=== PATIENT | female | born 1985 | race Caucasian/White ===

== ENCOUNTER → 2024-05-02 | Outpatient (CLI) | payer OTHER ==
--- NOTE | 2024-05-02 22:44 | US ---
EXAMINATION TYPE: US extremity nonvasc mass EREN DATE OF EXAM: 05/02/2024 COMPARISON: NONE CLINICAL INDICATION: Female, 38 years old with history of R19.09 OTHER INTRA-ABDOMINAL AND PELVIC SWE LLING,; palpable area on left hip region, patient noticed since she has been losing weight. On right hip/buttocks region she has recent injection and felt palpable afterwards TECHNIQUE: Soft tissue scan of bilat palpables FINDINGS: Left hip soft tissue appears normal Right hip/buttocks there is obvious hyperechoic region at site of injection 2 months ago measuring 3.8 x 3.5cm Abscess is not identified. Granuloma could be considered IMPRESSION: 1. There is a hyperechoic area within the subcutaneous fat at the palpable region measuring 3.8 x 1.6 x 3.5 cm. Evaluation for granuloma is recommended. [facility], , 05/02/2024 10:42 PM
== END | disposition home or self-care (01) ==
LOC: RADUSWWP 16:25
PROVIDERS: ATTEND Family Medicine
DX: R22.2 Localized swelling, mass and lump, trunk (principal)
CPT/HCPCS: 76882

== ENCOUNTER 2024-05-04 07:05 | Emergency (ER) | payer OTHER ==
[2024-05-04] MEDS: KETOROLAC 15 MG/ML 1 ML VIAL IM STA (07:33)
--- NOTE | 2024-05-04 07:37 | ED ---
Back Pain HPI - General Chief Complaint: Back Pain/Injury Stated Complaint: back pain Time Seen by Provider: 05/04/24 07:13 Source: patient, RN notes reviewed Limitations: no limitations - History of Present Illness Initial Comments: Patient is a 38 year old female with past medical history of asthma and chronic back pain presenting to ER with back pain. Patient states she "pulled her back out" last night in her sleep. She states that the pain is deep in her lumbar spine and is radiating into bilateral hips and legs with numbness and tingling. She describes her pain as "breathtaking". She states this has happened before and she has a long history of back pain. She states she is also feeling lightheaded and nauseous. She has taken 800mg Ibuprofen and 500mg Tylenol before coming in, which usually would help her pain. She states she would like Torodol as anything stronger makes her feel sick and she does not want to "feel high". - Related Data Previous Rx's Medication Instructions Recorded Cyclobenzaprine [Flexeril] 10 mg PO TID PRN #15 tab 05/04/24 LORazepam [Ativan] 1 mg PO TID PRN 3 Days #9 tab 05/04/24 predniSONE 50 mg PO DAILY #5 tab 05/04/24 Allergies Allergy/AdvReac Type Severity Reaction Status Date / Time escitalopram [From Lexapro] Allergy Nausea & Verified 05/04/24 07:07 Vomiting Penicillins Allergy Anaphylaxis Verified 05/04/24 07:07 Review of Systems ROS Statement: Those systems with pertinent positive or pertinent negative responses have been documented in the HPI. ROS Other: All systems not noted in ROS Statement are negative. Past Medical History Past Medical History: Asthma, Hyperlipidemia, Liver Disease, Skin Disorder Past Surgical History: Adenoidectomy, Hysterectomy, Tonsillectomy Past Psychological History: ADD/ADHD, Anxiety, Depression, PTSD Smoking Status: Current every day smoker Past Alcohol Use History: None Reported Past Drug Use History: Marijuana General Exam Limitations: no limitations General appearance: alert, anxious, in distress (tearful) Head exam: Present: atraumatic, normocephalic, normal inspection Eye exam: Present: normal appearance, PERRL, EOMI. Absent: scleral icterus, conjunctival injection, periorbital swelling Respiratory exam: Present: wheezes (bilaterl) Cardiovascular Exam: Present: normal rhythm, normal heart sounds. Absent: systolic murmur, diastolic murmur, rubs, gallop, clicks GI/Abdominal exam: Present: soft, normal bowel sounds. Absent: distended, tenderness, guarding, rebound, rigid Back exam: Present: tenderness, vertebral tenderness. Absent: full ROM (decreased flexion and extension), CVA tenderness (R), CVA tenderness (L) Neurological exam: Present: alert, oriented X3, CN II-XII intact Psychiatric exam: Present: normal affect, anxious Skin exam: Present: warm, dry, intact, normal color. Absent: rash Course Vital Signs 05/04/24 05/04/24 05/04/24 07:08 07:31 08:15 Temperature 98.1 F Pulse Rate 74 84 79 Respiratory 20 18 Rate Blood Pressure 123/71 111/17 O2 Sat by Pulse 99 98 Oximetry 05/04/24 05/04/24 05/04/24 08:27 09:22 11:14 Temperature 97.9 F Pulse Rate 67 83 63 Respiratory 18 16 Rate Blood Pressure 110/86 102/62 O2 Sat by Pulse 99 98 Oximetry 05/04/24 11:17 Temperature 97.9 F Pulse Rate 63 Respiratory 18 Rate Blood Pressure 102/62 O2 Sat by Pulse 98 Oximetry Medical Decision Making - Medical Decision Making Was pt. sent in by a medical professional or institution (ALLISON Smiley, MEDICAL BILLING CLERK, urgent care, hospital, or custodial...) When possible be specific @ -No Did you speak to anyone other than the patient for history (EMS, parent, family, police, friend...)? What history was obtained from this source @ -No Did you review nursing and triage notes (agree or disagree)? Why? @ -I reviewed and agree with nursing and triage notes Were old charts reviewed (outside hosp., previous admission, EMS record, old EKG, old radiological studies, urgent care reports/EKG's, custodial records)? Report findings @ -No old charts were reviewed Differential Diagnosis (chest pain, altered mental status, abdominal pain women, abdominal pain men, vaginal bleeding, weakness, fever, dyspnea, syncope, headache, dizziness, GI bleed, back pain, seizure, CVA, palpatations, mental health, musculoskeletal)? @ -Differential Back Pain: Strain, zoster, cauda equina syndrome, epidural abscess, vertebral osteomyelitis, discitis, fracture, subluxation, disc herniation, DJD, spinal stenosis, dissection, AAA, pancreatitis, peptic ulcer disease, pyelonephritis, kidney stone, this is not meant to be an all-inclusive list. EKG interpreted by me (3pts min.). @ -None X-rays interpreted by me (1pt min.). @ -X-ray lumbar spine showing mild straightening no other acute process CT interpreted by me (1pt min.). @ -None done U/S interpreted by me (1pt. min.). @ -None done What testing was considered but not performed or refused? (CT, X-rays, U/S, labs)? Why? @ -None What meds were considered but not given or refused? Why? @ -None Did you discuss the management of the patient with other professionals (professionals i.e. , PA, MEDICAL BILLING CLERK, lab, RT, psych nurse, administrator social welfare, transverse abdominal muscle nurse, teacher, sba business development officer, case folder)? Give summary @ -No Was smoking cessation discussed for >3mins.? @ -No Was critical care preformed (if so, how long)? @ -No Were there social determinants of health that impacted care today? How? (Homelessness, low income, unemployed, alcoholism, drug addiction, transportation, low edu. Level, literacy, decrease access to med. care, shelter, rehab)? @ -No Was there de-escalation of care discussed even if they declined (Discuss DNR or withdrawal of care, Hospice)? DNR status @ -No What co-morbidities impacted this encounter? (DM, HTN, Smoking, COPD, CAD, Cancer, CVA, ARF, Chemo, Hep., AIDS, mental health diagnosis, sleep apnea, morbid obesity)? @ -Asthma, anxiety, chronic back pain Was patient admitted / discharged? Hospital course, mention meds given and route, prescriptions, significant lab abnormalities, going to OR and other pertinent info. @ -Discharge patient presented for low back pain. Patient x-rays do not show any significant acute process. Patient has no red flag symptoms. Patient has improved she did have panic take emergency department quiring Ativan. Pain is improved she is able to ambulates she was given close follow-up return parameters discussed. Undiagnosed new problem with uncertain prognosis? @ -No Drug Therapy requiring intensive monitoring for toxicity (Heparin, Nitro, Insulin, Cardizem)? @ -No Were any procedures done? @ -No Diagnosis/symptom? @ -Acute on chronic back pain, anxiety, asthma Acute, or Chronic, or Acute on Chronic? @ -Acute on chronic, acute acute Uncomplicated (without systemic symptoms) or Complicated (systemic symptoms)? @ -Complicated Side effects of treatment? @ -No Exacerbation, Progression, or Severe Exacerbation? @ -No Poses a threat to life or bodily function? How? (Chest pain, USA, [place], pneumonia, PE, COPD, DKA, ARF, appy, cholecystitis, CVA, Diverticulitis, Homicidal, Suicidal, threat to staff... and all critical care pts) @ -No Disposition Clinical Impression: Lumbar radicular pain, Spasm of lumbar paraspinous muscle Disposition: HOME SELF-CARE Condition: Stable Instructions (If sedation given, give patient instructions): Acute Low Back Pain (ED) Additional Instructions: Please return to the Emergency Department if symptoms worsen or any other concerns. Prescriptions: LORazepam [Ativan] 1 mg PO TID PRN 3 Days #9 tab PRN Reason: Anxiety Cyclobenzaprine [Flexeril] 10 mg PO TID PRN #15 tab PRN Reason: Muscle Spasm predniSONE 50 mg PO DAILY #5 tab Is patient prescribed a controlled substance at d/c from ED?: Yes When asked, does pt state using other controlled substances?: No If prescribed controlled substance>3 days was MAPS reviewed?: Prescribed <3 Days If opioid is for acute pain is fill amount 7 days or less?: Yes If Rx opioid, was Start Talking consent form obtained?: Yes Referrals: Perlita Farmer MD [Primary Care Provider] - 1-2 days Veronica Duong DO [Doctor of Osteopathic Medicine] - 1-2 days Sepideh Joaquin MD [Medical Doctor] - 1-2 days Time of Disposition: 10:57
[2024-05-04] MEDS: ONDANSETRON ODT 4 MG TAB PO STA (07:39)
[2024-05-04] MEDS: IPRATROPIUM-ALBUTEROL 3 ML NEB INHALATION STA (08:15)
--- NOTE | 2024-05-04 08:24 | XR ---
EXAMINATION TYPE: XR lumbar spine 2 or 3V DATE OF EXAM: 05/04/2024 7:57 AM COMPARISON: None. CLINICAL INDICATION: Female, 38 years old with history of pain, pain TECHNIQUE: 3 view(s) obtained. FINDINGS: There are 5 lumbar-type vertebral bodies. Pedicles are intact. Disc heights are preserved. Vertebral body heights are preserved. Alignment is normal. IMPRESSION: 1. Unremarkable lumbar spine [facility], Workstation: [facility], 05/04/2024 8:22 AM
[2024-05-04] MEDS: LORazepam 2 MG/ML INJ IV STA ×2 (09:14→09:42)
[2024-05-04] MEDS: KETOROLAC 15 MG/ML 1 ML VIAL IVP STA (09:19)
[2024-05-04] MEDS: LORazepam 2 MG/ML INJ IM STA (09:40)
[2024-05-04] MEDS: methylPREDNISolone SOD SUCCI 125 MG/2 ML VIAL IV STA (10:08)
[2024-05-04] MEDS: ORPHENADRINE 30 MG/ML 2 ML VIAL IVP STA (10:11)
[2024-05-04] MEDS: HYDROmorphone 0.5 MG/0.5 ML SYRINGE IVP STA (10:13)
[2024-05-04 11:15] VITALS: BP 102/62; PULSE 63; TEMP 97.9
[2024-05-04 11:18] VITALS: RESP 18
[2024-05-04] MEDS: ACET/COD 300 MG/30 MG STARTER PACK 6 TAB BTL PO STA (11:28)
[2024-05-04] MEDS: CYCLOBENZAPRINE 10MG STARTER 3 TAB BTL PO STA (11:29)
== END 2024-05-04 11:34 | disposition home or self-care (01) ==
LOC: EC 07:05
DX: M54.16 Radiculopathy, lumbar region (principal); J45.909 Unspecified asthma, uncomplicated; F41.9 Anxiety disorder, unspecified; G89.29 Other chronic pain; F17.200 Nicotine dependence, unspecified, uncomplicated; Z88.0 Allergy status to penicillin; Z88.8 Allergy status to other drugs, medicaments and biological substances
CPT/HCPCS: 99284 ×2; 96374 ×2; 96375 ×5; 96376; 96372 ×2; 94640; 72100; J2060; J2360; J1885; J1171; J2919

== ENCOUNTER → 2024-05-19 | Outpatient (CLI) | payer OTHER ==
[2024-05-19 15:12] LABS: ALT 8 U/L (8-44); AST 11 U/L (13-35); Albumin 4.7 g/dL (3.8-4.9); Albumin/Globulin Ratio 1.57 Ratio (1.60-3.17); Alkaline Phosphatase 87 U/L (41-126); BUN/Creat Ratio 12.11 Ratio (12.00-20.00); Blood Urea Nitrogen 10.9 mg/dL (9.0-27.0); Calcium 9.7 mg/dL (8.7-10.3); Carbon Dioxide 23.9 mmol/L (21.6-31.8); Chloride 105 mmol/L (96-109); Glucose 113 mg/dL (70-110); Potassium 4.8 mmol/L (3.5-5.5); Sodium 141 mmol/L (135-145); Total Bilirubin 0.6 mg/dL (0.3-1.2); Total Protein 7.7 g/dL (6.2-8.2)
[2024-05-19 15:50] LABS: Basophils # (A) 0.04 X 10*3/uL (0.00-0.10); Basophils % (A) 0.6 %; Eosinophils # (A) 0.12 X 10*3/uL (0.04-0.35); Eosinophils % (A) 1.7 %; HCT 45.3 % (37.2-46.3); HGB 14.8 g/dL (12.0-15.0); Lymphocytes % (A) 34.4 %; MCH 30.5 pg (27.0-32.0); MCHC 32.7 g/dL (32.0-37.0); MCV 93.2 FL (80.0-97.0); Mean Platelet Volume 10.3 FL (9.5-12.2); Monocytes # (A) 0.39 X 10*3/uL (0.20-1.00); Monocytes % (A) 5.4 %; NRBC Per 100 WBC 0 X 10*3/uL (0.00-0.01); Neutrophils # (A) 4.19 X 10*3/uL (1.80-7.70); Neutrophils % (A) 57.6 %; Platelet Count 296 X 10*3/uL (140-440); RBC 4.86 X 10*6/uL (4.10-5.20); RDW 12.5 % (11.5-14.5); WBC 7.26 X 10*3/uL (4.50-10.00)
[2024-05-19 16:06] LABS: Erythrocyte Sedimentation Rate 41 mm/Hr (0-20)
[2024-05-19 16:59] LABS: Gliadin AB IgA, Deaminated Negative (Negative); Gliadin AB IgA, Unit 2.4 U/mL; Gliadin AB IgG, Deaminated Negative (Negative); Gliadin AB IgG, Unit <0.4 U/mL
== END | disposition home or self-care (01) ==
LOC: LABWHC1 09:12
PROVIDERS: ATTEND Nurse Practitioner Family
DX: K21.9 Gastro-esophageal reflux disease without esophagitis (principal); R10.9 Unspecified abdominal pain
CPT/HCPCS: 36415; 80053; 83516; 85025; 85652; 86140

== ENCOUNTER 2024-05-20 06:58 | Day surgery (SDC) | payer OTHER ==
[2024-05-18 10:39] VITALS: BMI 35.4
[2024-05-20 07:25] VITALS: TEMP 98.1
[2024-05-20] MEDS: IV FLUID CONTINUATION 1,000 ML IV ONE (07:25)
[2024-05-20] MEDS: LACTATED RINGERS 1,000 ML IV SCH (07:28)
[2024-05-20] MEDS: ONDANSETRON 4 MG/2 ML VIAL IVP STA (07:38)
[2024-05-20] MEDS ORDERED: PROPOFOL 10 MG/ML 20 ML VIAL IV ONE (07:40)
--- NOTE | 2024-05-20 07:59 | P.PCN ---
Date of Procedure: 05/20/24 Procedure(s) Performed: Brief history: Patient is a pleasant 38-year-old white female scheduled for an elective upper endoscopy as well as colonoscopy as a part of evaluation of chronic intermittent nausea vomiting and some abdominal pain and change in bowel habits for the last 20 years duration. Her symptoms are likely progressively getting worse. She has the symptoms at least once or twice a week. Also complains of alternating diarrhea and constipation. No rectal bleeding. Procedure performed: Esophagogastroduodenoscopy with biopsy Colonoscopy with biopsy Preoperative diagnosis: Intermittent nausea vomiting Anesthesia: MAC Procedure: After informed consent was obtained from the patient was brought into the endoscopy unit and IV sedation was administered by anesthesia under continuous monitoring. Initially upper endoscopy was done. The Olympus GF 160 video endoscope was inserted inserted into the mouth and esophagus intubated without any difficulty and was gradually advanced into the stomach and duodenum and carefully examined. The bulb and second part of the duodenum appeared normal. These were done from the duodenum to rule out celiac disease. The scope was then withdrawn into the stomach adequately insufflated with air and upon careful examination the antrum had patchy areas of erythema consistent with gastritis. Biopsies were done from this area. Mucosa body, cardia and fundus appeared normal. The scope was then withdrawn into the esophagus. The GE junction was located at 40 cm to the incisors. It appeared regular with appropriate erosion consistent with LA grade B reflux esophagitis. Rest of the esophagus appeared normal. These were done from the distal esophagus. Patient tolerated the procedure well. At this time the patient continued to remain sedation. Initial digital rectal examination was normal. Olympus CF 160 video colonoscope was then inserted into the rectum and gradually advanced to the cecum without any difficulty. Careful examination was performed as the scope was gradually being withdrawn. The prep was excellent. Ileum was intubated and 20 cm visualized and there is scattered erosions noted in the terminal ileum and biopsies were done from this area. The cecum, ascending colon, transverse colon, descending colon, sigmoid colon and rectum appeared normal. Biopsies were done from ascending and descending colon to rule out microscopic/presents colitis. Retroflexion was performed in the rectum and no lesions were noted. Patient tolerated the procedure well. Impression: 1. Upper endoscopy revealed mild antral gastritis and LA grade B reflux esophagitis 2. Colonoscopy was within normal limits with no evidence of colorectal neoplasia. Scattered erosions in the terminal ileum consistent with ileitis s/p biopsy Recommendations: Findings of this examination were discussed with the patient as well as her family. She was advised to follow with the biopsy results. She will be seen in the office in 2 to 3 weeks.
[2024-05-20 08:39] VITALS: BP 126/78; PULSE 78; RESP 18
== END 2024-05-20 08:56 | disposition home or self-care (01) ==
LOC: ORWHC2ENDO 06:58
PROVIDERS: ATTEND Internal Medicine Gastroenterology
DX: K29.50 Unspecified chronic gastritis without bleeding (principal); K52.9 Noninfective gastroenteritis and colitis, unspecified; K21.00 Gastro-esophageal reflux disease with esophagitis, without bleeding; E78.5 Hyperlipidemia, unspecified; J45.909 Unspecified asthma, uncomplicated; Z85.41 Personal history of malignant neoplasm of cervix uteri; Z79.51 Long term (current) use of inhaled steroids; Z79.899 Other long term (current) drug therapy; Z90.710 Acquired absence of both cervix and uterus; Z91.040 Latex allergy status; Z88.0 Allergy status to penicillin; Z88.8 Allergy status to other drugs, medicaments and biological substances; Z98.890 Other specified postprocedural states
CPT/HCPCS: 88305; 45380; 43239; J2405; J2704

== ENCOUNTER 2024-05-23 15:14 | Emergency (ER) | payer OTHER ==
--- NOTE | 2024-05-23 15:24 | ED ---
General Adult HPI - General Source: patient, RN notes reviewed Mode of arrival: ambulatory Limitations: no limitations <Lottie Ford - Last Filed: 05/23/24 15:24> - General Source: patient, RN notes reviewed, old records reviewed Mode of arrival: ambulatory Limitations: no limitations - History of Present Illness -: hour(s) (12) Location: buttocks Radiation: non-radiation Consistency: intermittent Improves with: none Worsens with: none Associated Symptoms: weakness Treatments Prior to Arrival: none <Pete López - Last Filed: 05/25/24 07:51> - General Chief complaint: GI Bleed Stated complaint: bleeding from rectum Time Seen by Provider: 05/23/24 15:24 - History of Present Illness Initial comments: Quick note: 38-year-old female presents to the emergency department for evaluation of rectal bleeding. Patient reports that she underwent a colonoscopy 3 days ago and started experiencing blood in stool. Denies blood thinners. Denies nausea, vomiting. States that she had a colonoscopy done by Dr. Briseno. (Lottie Ford) This is a 38 female to the ER for rectal bleeding. Colonoscopy 3 days ago she did have polyps removed, patient has had bleeding starting last night and feels like she has to go to the bathroom. Patient is passing some clots (Pete López) - Related Data Home Medications Medication Instructions Recorded Confirmed Acetaminophen Tab [Tylenol Tab] 500 mg PO Q8HR PRN 05/18/24 05/20/24 Acetaminophen-Codeine 300-30mg 1 tab PO Q6H PRN 05/18/24 05/20/24 [Tylenol w/codeine #3] Albuterol Inhaler [Ventolin Hfa 1 - 2 puff INHALATION Q6H PRN 05/18/24 05/20/24 Inhaler] Cyanocobalamin (Vitamin B-12) 1,000 mcg PO DAILY 05/18/24 05/18/24 [B-12 Oral Soln] Fluticasone/Umeclidin/Vilanter 2 dose INHALATION BID 05/18/24 05/20/24 [Trelegy Ellipta 100-62.5-25] Ibuprofen 800 mg PO Q8H PRN 05/18/24 05/18/24 Ondansetron [Zofran] 4 mg PO Q8HR PRN 05/18/24 05/20/24 Pantoprazole [Protonix] 40 mg PO DAILY 05/18/24 05/20/24 Semaglutide [Wegovy] 1 mg SQ WEEKLY 05/18/24 05/18/24 Previous Rx's Medication Instructions Recorded Cyclobenzaprine [Flexeril] 10 mg PO TID PRN #15 tab 05/04/24 LORazepam [Ativan] 1 mg PO TID PRN 3 Days #9 tab 05/04/24 Allergies Allergy/AdvReac Type Severity Reaction Status Date / Time latex Allergy Rash/Hives Verified 05/23/24 15:20 Penicillins Allergy Anaphylaxis Verified 05/23/24 15:20 bupropion [From Wellbutrin] AdvReac Unknown Verified 05/23/24 15:20 mold AdvReac Unknown Verified 05/23/24 15:20 Review of Systems ROS Other: All systems not noted in ROS Statement are negative. <Lottie Ford - Last Filed: 05/23/24 15:24> ROS Other: All systems not noted in ROS Statement are negative. <Pete López - Last Filed: 05/25/24 07:51> ROS Statement: Those systems with pertinent positive or pertinent negative responses have been documented in the HPI. Past Medical History Past Medical History: Asthma, Hyperlipidemia, Liver Disease, Skin Disorder History of Any Multi-Drug Resistant Organisms: None Reported Past Surgical History: Adenoidectomy, Hysterectomy, Tonsillectomy Past Psychological History: ADD/ADHD, Anxiety, Depression, PTSD Smoking Status: Current every day smoker Past Alcohol Use History: None Reported Past Drug Use History: Marijuana <Lottie Ford - Last Filed: 05/23/24 15:24> General Exam Limitations: no limitations <Lottie Ford - Last Filed: 05/23/24 15:24> General appearance: alert, in no apparent distress Head exam: Present: atraumatic, normocephalic, normal inspection Eye exam: Present: normal appearance, PERRL, EOMI. Absent: scleral icterus, conjunctival injection, periorbital swelling ENT exam: Present: normal exam, mucous membranes moist Neck exam: Present: normal inspection. Absent: tenderness, meningismus, lymphadenopathy Respiratory exam: Present: normal lung sounds bilaterally. Absent: respiratory distress, wheezes, rales, rhonchi, stridor Cardiovascular Exam: Present: regular rate, normal rhythm, normal heart sounds. Absent: systolic murmur, diastolic murmur, rubs, gallop, clicks GI/Abdominal exam: Present: soft, normal bowel sounds. Absent: distended, tenderness, guarding, rebound, rigid Extremities exam: Present: normal inspection, full ROM, normal capillary refill. Absent: tenderness, pedal edema, joint swelling, calf tenderness Back exam: Present: normal inspection Neurological exam: Present: alert, oriented X3, CN II-XII intact Psychiatric exam: Present: normal affect, normal mood Skin exam: Present: warm, dry, intact, normal color. Absent: rash <Pete López - Last Filed: 05/25/24 07:51> - General Exam Comments Initial Comments: Visual Physical Exam Vital signs reviewed General: Well-appearing, nontoxic, no acute distress. Head: Normocephalic, atraumatic Eyes: PERRLA, EOMI ENT: Airway patent Chest: Nonlabored breathing Skin: No visual rash, normal skin tone Neuro: Alert and oriented 3 Musculoskeletal: No gross abnormalities (Lottie Ford) Course <Pete López - Last Filed: 05/25/24 07:51> Vital Signs 05/23/24 05/23/24 15:17 18:30 Temperature 98.4 F 98 F Pulse Rate 100 60 Respiratory 20 18 Rate Blood Pressure 111/75 111/71 O2 Sat by Pulse 96 97 Oximetry - Reevaluation(s) Reevaluation #1: 05/23/24 17:55 Medical records reviewed (Pete López) Reevaluation #2: 05/23/24 17:55 Patient symptoms unchanged (Pete López) Reevaluation #3: 05/23/24 17:55 Patient informed of results questions answered (Pete López) Reevaluation #4: Was pt. sent in by a medical professional or institution (, PA, BUILD AND DEPLOYMENT ENGINEER, urgent care, hospital, or custodial...) When possible be specific @ -no Did you speak to anyone other than the patient for history (EMS, parent, family, police, friend...)? What history was obtained from this source @ -no Did you review nursing and triage notes (agree or disagree)? Why? @ -agree Are old charts reviewed (outside hosp., previous admission, EMS record, old EKG, old radiological studies, urgent care reports/EKG's, custodial records)? Report findings @ -yes Differential Diagnosis (chest pain, altered mental status, abdominal pain women, abdominal pain men, vaginal bleeding, weakness, fever, dyspnea, syncope, head ache, dizziness, GI bleed, back pain, seizure, CVA, palpatations, mental health, musculoskeletal)? @ -prior EKG interpreted by me (3pts min.). @ no X-rays interpreted by me (1pt min.). @ -yes negative for acute disease CT interpreted by me (1pt min.). @ -no U/S interpreted by me (1pt. min.). @ -no What testing was considered but not performed or refused? (CT, X-rays, U/S, labs)? Why? @ -none What meds were considered but not given or refused? Why? @ -none Did you discuss the management of the patient with other professionals (professionals i.e. , PA, BUILD AND DEPLOYMENT ENGINEER, lab, RT, psych nurse, social media assistant, blacktop spreader, teacher, targeting acquisition officer, human services case manager)? Give summary @ -no Was smoking cessation discussed for >3mins.? @ -no Was critical care preformed (if so, how long)? @ -no Were there social determinants of health that impacted care today? How? (Homelessness, low income, unemployed, alcoholism, drug addiction, transportation, low edu. Level, literacy, decrease access to med. care, residential, rehab)? @ -none Was there de-escalation of care discussed even if they declined (Discuss DNR or withdrawal of care, Hospice)? DNR status @ -no What co-morbidities impacted this encounter? (DM, HTN, Smoking, COPD, CAD, Cancer, CVA, ARF, Chemo, Hep., AIDS, mental health diagnosis, sleep apnea, morbi d obesity)? @ -none Was patient admitted / discharged? Hospital course, mention meds given and rout e, prescriptions, significant lab abnormalities, going to OR and other pertinent info. @ - 38 female to ER positive GI bleed history of recent colonoscopy, hemoglobin stable. Patient's vital signs are normal not orthostatic or dizzy no signs of near syncope. Patient can be discharged home Discharge Undiagnosed new problem with uncertain prognosis? @ -no Drug Therapy requiring intensive monitoring for toxicity (Heparin, Nitro, Insulin, Cardizem)? @ -no Were any procedures done? @ -no Diagnosis/symptom? @ -GI bleed recent colonoscopy postprocedural Acute, or Chronic, or Acute on Chronic? @ -Acute Uncomplicated (without systemic symptoms) or Complicated (systemic symptoms)? @ -Complicated Side effects of treatment? @ -no Exacerbation, Progression, or Severe Exacerbation? @ -exacerbation Poses a threat to life or bodily function? How? (Chest pain, USA, [place], pneumonia, PE, COPD, DKA, ARF, appy, cholecystitis, CVA, Diverticulitis, Homicidal, Suicidal, threat to staff... and all critical care pts) @ -yes acute GI bleed (Pete López) Reevaluation #5: Differential GI Bleed: Esophageal varices, aortoenteric fistula, Noemi-Owens, gastritis, peptic ulcer disease, diverticulosis, inflammatory bowel disease, hemorrhoids, fissure, c olitis, malignancy, Meckel's diverticulum, this is not meant to be an all- inclusive list. (Pete López) - Consultations Consultation #1: Spoke with Dr. Gamez for GI will follow-up in the office (Pete López) Medical Decision Making <Lottie Ford - Last Filed: 05/23/24 15:24> - Lab Data Result diagrams: 05/23/24 15:48 05/23/24 15:48 <Pete López - Last Filed: 05/25/24 07:51> - Medical Decision Making Quick note preformed and electronically signed by Lottie Fodr PA-C (Lottie Ford) 38 female to ER positive GI bleed history of recent colonoscopy, hemoglobin stable. Patient's vital signs are normal not orthostatic or dizzy no signs of near syncope. Patient can be discharged home (Pete López) - Lab Data Lab Results 05/23/24 05/23/24 05/23/24 Range/Units 15:48 15:48 15:48 WBC 7.2 (3.8-10.6) k/uL RBC 4.49 (3.80-5.40) m/uL Hgb 13.8 (11.4-16.0) gm/dL Hct 41.3 (34.0-46.0) % MCV 91.9 (80.0-100.0) fL MCH 30.7 (25.0-35.0) pg MCHC 33.5 (31.0-37.0) g/dL RDW 12.4 (11.5-15.5) % Plt Count 259 (150-450) k/uL MPV 6.6 Neutrophils % 60 % Lymphocytes % 33 % Monocytes % 4 % Eosinophils % 2 % Basophils % 1 % Neutrophils # 4.3 (1.3-7.7) k/uL Lymphocytes # 2.3 (1.0-4.8) k/uL Monocytes # 0.3 (0-1.0) k/uL Eosinophils # 0.2 (0-0.7) k/uL Basophils # 0.0 (0-0.2) k/uL PT 11.1 (10.0-12.5) sec INR 1.0 (<1.2) APTT 30.3 H (22.0-30.0) sec Sodium 138 (137-145) mmol/L Potassium 4.2 (3.5-5.1) mmol/L Chloride 103 (98-107) mmol/L Carbon Dioxide 23 (22-30) mmol/L Anion Gap 12 mmol/L BUN 15 (7-17) mg/dL Creatinine 0.98 (0.52-1.04) mg/dL Est GFR (CKD-EPI)AfAm 85 (>60 ml/min/1.73 sqM) Est GFR (CKD-EPI)NonAf 73 (>60 ml/min/1.73 sqM) Glucose 101 H (74-99) mg/dL Calcium 9.9 (8.4-10.2) mg/dL Total Bilirubin 0.5 (0.2-1.3) mg/dL AST 15 (14-36) U/L ALT 11 (4-34) U/L Alkaline Phosphatase 77 (38-126) U/L Total Protein 7.7 (6.3-8.2) g/dL Albumin 4.5 (3.5-5.0) g/dL Disposition <Lottie Ford - Last Filed: 05/23/24 15:24> Is patient prescribed a controlled substance at d/c from ED?: No Time of Disposition: 18:00 <Pete López - Last Filed: 05/25/24 07:51> Clinical Impression: Colonoscopy causing post-procedural bleeding, Lower gastrointestinal hemorrhage Disposition: HOME SELF-CARE Condition: Fair Instructions (If sedation given, give patient instructions): Gastrointestinal Bleeding (ED) Referrals: Zaira Briseno MD [STAFF PHYSICIAN] - 1-2 days
[2024-05-23 16:01] LABS: Basophils % (A) 1 %; Eosinophils # (A) 0.2 k/uL (0-0.7); Eosinophils % (A) 2 %; HCT 41.3 % (34.0-46.0); HGB 13.8 gm/dL (11.4-16.0); Lymphocytes # (A) 2.3 k/uL (1.0-4.8); Lymphocytes % (A) 33 %; MCH 30.7 pg (25.0-35.0); MCHC 33.5 g/dL (31.0-37.0); MCV 91.9 fL (80.0-100.0); Mean Platelet Volume 6.6; Monocytes # (A) 0.3 k/uL (0-1.0); Monocytes % (A) 4 %; Neutrophils # (A) 4.3 k/uL (1.3-7.7); Neutrophils % (A) 60 %; Platelet Count 259 k/uL (150-450); RBC 4.49 m/uL (3.80-5.40); RDW 12.4 % (11.5-15.5); WBC 7.2 k/uL (3.8-10.6)
[2024-05-23 16:09] LABS: Partial Thromboplastin Time 30.3 sec (22.0-30.0); Prothrombin Time 11.1 sec (10.0-12.5)
[2024-05-23 16:17] LABS: ALT 11 U/L (4-34); AST 15 U/L (14-36); African American GFR (CKD) 85 (>60 ml/min/1.73 sqM); Albumin 4.5 g/dL (3.5-5.0); Alkaline Phosphatase 77 U/L (38-126); Anion Gap 12 mmol/L; Blood Urea Nitrogen 15 mg/dL (7-17); Calcium 9.9 mg/dL (8.4-10.2); Carbon Dioxide 23 mmol/L (22-30); Chloride 103 mmol/L (98-107); Glucose 101 mg/dL (74-99); Non-African American GFR(CKD) 73 (>60 ml/min/1.73 sqM); Potassium 4.2 mmol/L (3.5-5.1); Sodium 138 mmol/L (137-145); Total Bilirubin 0.5 mg/dL (0.2-1.3); Total Protein 7.7 g/dL (6.3-8.2)
[2024-05-23 18:31] VITALS: BP 111/71; PULSE 60; RESP 18; TEMP 98
== END 2024-05-23 18:31 | disposition home or self-care (01) ==
LOC: EC 15:14
DX: K92.2 Gastrointestinal hemorrhage, unspecified (principal); K91.840 Postprocedural hemorrhage of a digestive system organ or structure following a digestive system procedure; F17.200 Nicotine dependence, unspecified, uncomplicated; Z88.0 Allergy status to penicillin; Z91.040 Latex allergy status; Z77.120 Contact with and (suspected) exposure to mold (toxic); Z88.8 Allergy status to other drugs, medicaments and biological substances
CPT/HCPCS: 36415; 80053; 85025; 85610; 85730; 99284

== ENCOUNTER → 2024-06-07 | Outpatient (CLI) | payer OTHER | LOC: CPPFTMAIN 08:20 | PROVIDERS: ATTEND Family Medicine | DX: R06.9 Unspecified abnormalities of breathing (principal); F12.90 Cannabis use, unspecified, uncomplicated; Z91.040 Latex allergy status; Z88.0 Allergy status to penicillin; Z88.6 Allergy status to analgesic agent; Z77.120 Contact with and (suspected) exposure to mold (toxic) | CPT/HCPCS: 94060; 94726; 94729 ==

== ENCOUNTER 2024-08-24 06:00 | Emergency (ER) | payer OTHER ==
[2024-08-24 06:07] VITALS: TEMP 98.3
[2024-08-24 06:13] VITALS: RESP 18
--- NOTE | 2024-08-24 06:43 | ED ---
General Adult HPI - General Source: patient Mode of arrival: ambulatory Limitations: no limitations <Jesus Mir - Last Filed: 08/24/24 06:43> - General Source: RN notes reviewed <Easton Ann - Last Filed: 08/24/24 08:36> - General Chief complaint: Abdominal Pain Stated complaint: Abd Pain Time Seen by Provider: 08/24/24 06:19 - History of Present Illness Initial comments: Dictation was produced using [employer] dictation software. please excuse any grammatical, word or spelling errors. Chief Complaint: 38-year-old female with abdominal pain History of Present Illness: Patient 38-year-old female presents to the emergency department with abdominal pain. Patient reports history of Crohn's disease. States that over the last several days she has been having worsening abdominal pain, narrow stool caliber. She has been trying to take laxatives due to feeling of not being able to evacuate her bowels fully. Denies any fever, chills or night sweats. States that she has had complications from Crohn's disease in the past. Patient localizes her pain to the lower abdomen. The ROS documented in this emergency department record has been reviewed and confirmed by me. Those systems with pertinent positive or negative responses have been documented in the HPI. All other systems are other negative and/or noncontributory. (Jesus Mir) - Related Data Home Medications Medication Instructions Recorded Confirmed Acetaminophen Tab [Tylenol Tab] 500 mg PO Q8HR PRN 05/18/24 05/20/24 Acetaminophen-Codeine 300-30mg 1 tab PO Q6H PRN 05/18/24 05/20/24 [Tylenol w/codeine #3] Albuterol Inhaler [Ventolin Hfa 1 - 2 puff INHALATION Q6H PRN 05/18/24 05/20/24 Inhaler] Cyanocobalamin (Vitamin B-12) 1,000 mcg PO DAILY 05/18/24 05/18/24 [B-12 Oral Soln] Fluticasone/Umeclidin/Vilanter 2 dose INHALATION BID 05/18/24 05/20/24 [Trelegy Ellipta 100-62.5-25] Ibuprofen 800 mg PO Q8H PRN 05/18/24 05/18/24 Ondansetron [Zofran] 4 mg PO Q8HR PRN 05/18/24 05/20/24 Pantoprazole [Protonix] 40 mg PO DAILY 05/18/24 05/20/24 Semaglutide [Wegovy] 1 mg SQ WEEKLY 05/18/24 05/18/24 Previous Rx's Medication Instructions Recorded Cyclobenzaprine [Flexeril] 10 mg PO TID PRN #15 tab 05/04/24 LORazepam [Ativan] 1 mg PO TID PRN 3 Days #9 tab 05/04/24 Allergies Allergy/AdvReac Type Severity Reaction Status Date / Time latex Allergy Rash/Hives Verified 08/24/24 06:07 Penicillins Allergy Anaphylaxis Verified 08/24/24 06:07 bupropion [From Wellbutrin] AdvReac Unknown Verified 08/24/24 06:07 mold AdvReac Unknown Verified 08/24/24 06:07 Review of Systems ROS Other: All systems not noted in ROS Statement are negative. <Jesus Mir - Last Filed: 08/24/24 06:43> ROS Other: All systems not noted in ROS Statement are negative. <Easton Ann - Last Filed: 08/24/24 08:36> ROS Statement: Those systems with pertinent positive or pertinent negative responses have been documented in the HPI. Past Medical History Past Medical History: Asthma, Hyperlipidemia, Liver Disease, Skin Disorder Additional Past Medical History / Comment(s): Chrons History of Any Multi-Drug Resistant Organisms: None Reported Past Surgical History: Adenoidectomy, Hysterectomy, Tonsillectomy Past Psychological History: ADD/ADHD, Anxiety, Depression, PTSD Smoking Status: Former smoker Past Alcohol Use History: None Reported Past Drug Use History: Marijuana <Jesus Mir - Last Filed: 08/24/24 06:43> General Exam Limitations: no limitations <Jesus Mir - Last Filed: 08/24/24 06:43> General appearance: alert, in no apparent distress Head exam: Present: atraumatic, normocephalic, normal inspection Eye exam: Present: normal appearance, PERRL, EOMI. Absent: scleral icterus, conjunctival injection, periorbital swelling ENT exam: Present: normal exam, mucous membranes moist Neck exam: Present: normal inspection. Absent: tenderness, meningismus, lymphadenopathy Respiratory exam: Present: normal lung sounds bilaterally. Absent: respiratory distress, wheezes, rales, rhonchi, stridor, chest wall tenderness Cardiovascular Exam: Present: regular rate, normal rhythm, normal heart sounds. Absent: systolic murmur, diastolic murmur, rubs, gallop, clicks GI/Abdominal exam: Present: soft, tenderness, normal bowel sounds. Absent: distended, guarding, rebound, rigid <Easton Ann - Last Filed: 08/24/24 08:36> - General Exam Comments Initial Comments: PHYSICAL EXAM: General Impression: Alert and oriented x3, not in acute distress HEENT: Normocephalic atraumatic, extra-ocular movements intact, pupils equal and reactive to light bilaterally, mucous membranes moist. Cardiovascular: Heart regular rate and rhythm Chest: Able to complete full sentences, no retractions, no tachypnea Abdomen: abdomen soft, diffuse palpatory abdominal tenderness, non-distended, no organomegaly Musculoskeletal: Pulses present and equal in all extremities, no peripheral edema Motor: no focal deficits noted Neurological: CN II-XII grossly intact, no focal motor or sensory deficits noted Skin: Intact with no visualized rashes Psych: Normal affect and mood (Jesus Mir) Course Vital Signs 08/24/24 08/24/24 06:03 06:11 Temperature 98.3 F Pulse Rate 103 H 85 Respiratory 20 18 Rate Blood Pressure 114/70 107/64 O2 Sat by Pulse 96 99 Oximetry Medical Decision Making - Lab Data Result diagrams: 08/24/24 06:40 08/24/24 06:40 <Easton Ann - Last Filed: 08/24/24 08:36> - Medical Decision Making Was pt. sent in by a medical professional or institution (, PA, SAP DATA ARCHITECT, urgent care, hospital, or retirement...) When possible be specific @ -No Did you speak to anyone other than the patient for history (EMS, parent, family, police, friend...)? What history was obtained from this source @ -No Did you review nursing and triage notes (agree or disagree)? Why? @ -I reviewed and agree with nursing and triage notes Were old charts reviewed (outside hosp., previous admission, EMS record, old EKG, old radiological studies, urgent care reports/EKG's, retirement records)? Report findings @ -No old charts were reviewed Differential Diagnosis (chest pain, altered mental status, abdominal pain women, abdominal pain men, vaginal bleeding, weakness, fever, dyspnea, syncope, headache, dizziness, GI bleed, back pain, seizure, CVA, palpatations, mental health, musculoskeletal)? @ -Differential Abdominal Pain Women: Appendicitis, Cholecystitis, diverticulosis, ischemic bowel, pancreatitis, hepatitis, UTI, gastroenteritis, AAA, incarcerated hernia, bowel obstruction, constipation, inflammatory bowel, hepatitis, peptic ulcer disease, splenic infarction, perforated viscus, vulvitis, ovarian torsion, PID, kidney stone, placenta abruption, this is not meant to be an all-inclusive list EKG interpreted by me (3pts min.). @ -None X-rays interpreted by me (1pt min.). @ -None done CT interpreted by me (1pt min.). @ -See down pelvis essentially unremarkable there is small area of mild demonstrated changes of small bowel U/S interpreted by me (1pt. min.). @ -None done What testing was considered but not performed or refused? (CT, X-rays, U/S, labs)? Why? @ -None What meds were considered but not given or refused? Why? @ -None Did you discuss the management of the patient with other professionals (professionals i.e. , PA, SAP DATA ARCHITECT, lab, RT, psych nurse, clinical social worker, intellectual property lawyer, teacher, optics technical officer, bottle caser)? Give summary @ -No Was smoking cessation discussed for >3mins.? @ -No Was critical care preformed (if so, how long)? @ -No Were there social determinants of health that impacted care today? How? (Homelessness, low income, unemployed, alcoholism, drug addiction, transportation, low edu. Level, literacy, decrease access to med. care, half-way, rehab)? @ -No Was there de-escalation of care discussed even if they declined (Discuss DNR or withdrawal of care, Hospice)? DNR status @ -No What co-morbidities impacted this encounter? (DM, HTN, Smoking, COPD, CAD, Cancer, CVA, ARF, Chemo, Hep., AIDS, mental health diagnosis, sleep apnea, morbid obesity)? @ -Crohn's disease Was patient admitted / discharged? Hospital course, mention meds given and route, prescriptions, significant lab abnormalities, going to OR and other pertinent info. @ -Discharge patient feels improved this time. Patient CT is essentially unremarkable. Patient will be discharged in stable condition return parameters discussed Undiagnosed new problem with uncertain prognosis? @ -No Drug Therapy requiring intensive monitoring for toxicity (Heparin, Nitro, Insulin, Cardizem)? @ -No Were any procedures done? @ -No Diagnosis/symptom? @ -Abdominal pain Acute, or Chronic, or Acute on Chronic? @ -Acute Uncomplicated (without systemic symptoms) or Complicated (systemic symptoms)? @ -uncomplicated Side effects of treatment? @ -No Exacerbation, Progression, or Severe Exacerbation? @ -No Poses a threat to life or bodily function? How? (Chest pain, USA, NM, pneumonia, PE, COPD, DKA, ARF, appy, cholecystitis, CVA, Diverticulitis, Homicidal, Suicidal, threat to staff... and all critical care pts) @ -No (Easton Ann) - Lab Data Lab Results 08/24/24 08/24/24 08/24/24 Range/Units 06:40 06:40 06:45 WBC 6.32 (4.50-10.00) 10*3/uL RBC 4.21 (4.10-5.20) 10*6/uL Hgb 13.1 (12.0-15.0) g/dL Hct 36.9 L (37.2-46.3) % MCV 87.6 (80.0-97.0) fL MCH 31.1 (27.0-32.0) pg MCHC 35.5 (32.0-37.0) g/dL Plt Count 255 (140-440) 10*3/uL MPV 8.5 L (9.5-12.2) fL Immature Gran % (Auto) 0.2 % Neutrophils % 54.1 % Lymphocytes % 37.0 % Monocytes % 6.3 % Eosinophils % 2.1 % Basophils % 0.3 % Immature Gran # 0.01 (0.00-0.04) 10*3/uL Neutrophils # 3.42 (1.80-7.70) 10*3/uL Lymphocytes # 2.34 (0.90-5.00) 10*3/uL Monocytes # 0.40 (0.20-1.00) 10*3/uL Eosinophils # 0.13 (0.04-0.35) 10*3/uL Basophils # 0.02 (0.00-0.10) 10*3/uL PT 10.8 (10.0-12.5) sec INR 1.0 (<1.2) APTT 27.6 (22.0-30.0) sec Sodium 136 L (137-145) mmol/L Potassium 4.6 (3.5-5.1) mmol/L Chloride 107 (98-107) mmol/L Carbon Dioxide 18 L (22-30) mmol/L Anion Gap 11 mmol/L BUN 12 (7-17) mg/dL Creatinine 0.83 (0.52-1.04) mg/dL Est GFR (CKD-EPI)AfAm >90 (>60 ml/min/1.73 sqM) Est GFR (CKD-EPI)NonAf >90 (>60 ml/min/1.73 sqM) Glucose 88 (74-99) mg/dL Calcium 9.3 (8.4-10.2) mg/dL Total Bilirubin 0.9 (0.2-1.3) mg/dL AST 18 (14-36) U/L ALT 9 (4-34) U/L Alkaline Phosphatase 61 (38-126) U/L Total Protein 7.2 (6.3-8.2) g/dL Albumin 4.2 (3.5-5.0) g/dL Lipase 100 (23-300) U/L Disposition <Jesus Mir - Last Filed: 08/24/24 06:43> Is patient prescribed a controlled substance at d/c from ED?: No Time of Disposition: 08:36 <Easton Ann - Last Filed: 08/24/24 08:36> Clinical Impression: Abdominal pain Disposition: HOME SELF-CARE Condition: Stable Instructions (If sedation given, give patient instructions): Abdominal Pain (ED) Additional Instructions: Please return to the Emergency Department if symptoms worsen or any other concerns. Referrals: Perlita Farmer MD [Primary Care Provider] - 1-2 days
[2024-08-24 06:53] LABS: Basophils # (A) 0.02 10*3/uL (0.00-0.10); Basophils % (A) 0.3 %; Eosinophils # (A) 0.13 10*3/uL (0.04-0.35); Eosinophils % (A) 2.1 %; HCT 36.9 % (37.2-46.3); HGB 13.1 g/dL (12.0-15.0); Lymphocytes # (A) 2.34 10*3/uL (0.90-5.00); MCH 31.1 pg (27.0-32.0); MCHC 35.5 g/dL (32.0-37.0); MCV 87.6 fL (80.0-97.0); Mean Platelet Volume 8.5 fL (9.5-12.2); Monocytes % (A) 6.3 %; Neutrophils # (A) 3.42 10*3/uL (1.80-7.70); Neutrophils % (A) 54.1 %; Platelet Count 255 10*3/uL (140-440); RBC 4.21 10*6/uL (4.10-5.20); RDW 12.5 % (11.5-14.5); WBC 6.32 10*3/uL (4.50-10.00)
[2024-08-24 07:16] LABS: ALT 9 U/L (4-34); African American GFR (CKD) >90 (>60 ml/min/1.73 sqM); Albumin 4.2 g/dL (3.5-5.0); Anion Gap 11 mmol/L; Blood Urea Nitrogen 12 mg/dL (7-17); Calcium 9.3 mg/dL (8.4-10.2); Carbon Dioxide 18 mmol/L (22-30); Chloride 107 mmol/L (98-107); Glucose 88 mg/dL (74-99); Lipase 100 U/L (23-300); Non-African American GFR(CKD) >90 (>60 ml/min/1.73 sqM); Sodium 136 mmol/L (137-145); Total Bilirubin 0.9 mg/dL (0.2-1.3); Total Protein 7.2 g/dL (6.3-8.2)
[2024-08-24 07:20] LABS: AST 18 U/L (14-36); Potassium 4.6 mmol/L (3.5-5.1)
[2024-08-24 07:21] LABS: Alkaline Phosphatase 61 U/L (38-126)
--- NOTE | 2024-08-24 07:44 | CT ---
EXAMINATION TYPE: CT abdomen pelvis w con DATE OF EXAM: 08/24/2024 7:21 AM COMPARISON: None. CLINICAL INDICATION: Female, 38 years old with history of abdominal pain, crohns history, LOWER ABD P AIN TECHNIQUE: Axial images were obtained from above the diaphragm to the pubic rami in the axial plane a t 5 mm thick sections. Reconstructed images are reviewed on the computer in the coronal plane. CONTRAST: 100 mL of Isovue 300. Study performed without Oral Contrast DLP: 1258.6 mGycm, Automated exposure control for dose reduction was used. FINDINGS: Limited CT sections are obtained the lung bases. The lung bases are clear. There is a small hiatal hernia present. CT ABDOMEN: Liver: Normal Spleen: Normal Pancreas: Normal Adrenal glands: The adrenal glands are normal. Gallbladder: Normal Kidneys: No masses are evident. No hydronephrosis is present. No cysts are present. Delayed images were obtained through the kidneys, which remain unremarkable. Aorta: Normal Inferior vena cava: Normal. CT PELVIS: Loops of bowel within the abdomen and pelvis are normal. A nonspecific small bowel containing flu id is within the left lower quadrant. This may has some mild wall enhancement. Some focal inflammator y change within this loop of bowel could be considered. Example image is series 201 image 67, series 202 image 49. A few diverticuli may be present within the proximal colon. No suspicious inflammatory changes adjace nt to small bowel loops evident. No free air is identified. Colon is decompressed. Appendix: Not identified. Urinary bladder: Normal. Genitourinary structures: Uterus and ovaries are not identified. Osseous structures: No suspicious lytic or sclerotic lesions. IMPRESSION: 1. No suspicious inflammatory changes adjacent. 2. There is some minimal wall enhancement of a bowel in the right lower quadrant. Some mild inflammat ory change could be considered. [facility], , 08/24/2024 7:42 AM
[2024-08-24 07:50] LABS: Partial Thromboplastin Time 27.6 sec (22.0-30.0); Prothrombin Time 10.8 sec (10.0-12.5)
[2024-08-24] MEDS: KETOROLAC 15 MG/ML 1 ML VIAL IVP STA (08:01)
[2024-08-24] MEDS: METOCLOPRAMIDE 5 MG/ML 2 ML VIAL IVP STA (08:03)
[2024-08-24] MEDS: SODIUM CHLORIDE 0.9% 1,000 ML IV ONE (08:05)
[2024-08-24] MEDS: DEXAMETHASONE SOD PHOSPHATE 10 MG/ML 1 ML VIAL IVP STA (08:24)
[2024-08-24 08:49] VITALS: BP 106/69; PULSE 89
[2024-08-24 09:09] LABS: Appearance,Urine Clear (Clear); Bilirubin,Urine Negative (Negative); Blood,Urine Trace (Negative); Color,Urine Colorless; Glucose,Urine (UA) Negative (Negative); Ketones,Urine Negative (Negative); Leukocyte Esterase,Urine Negative (Negative); Nitrite,Urine Negative (Negative); PH, Urine 6.5 (5.0-8.0); Protein,Urine Negative (Negative); RBC,Urine 2 /hpf (0-5); Squamous Epithelial Cell,Urine 15 /hpf (0-4); Urobilinogen,Urine <2.0 mg/dL (<2.0); WBC,Urine <1 /hpf (0-5)
[2024-08-24 09:24] LABS: Specific Gravity,Urine >1.050 (1.001-1.035)
== END 2024-08-24 08:49 | disposition home or self-care (01) ==
LOC: EC 06:00
DX: R10.9 Unspecified abdominal pain (principal); Z87.19 Personal history of other diseases of the digestive system; Z87.891 Personal history of nicotine dependence; Z91.040 Latex allergy status; Z88.0 Allergy status to penicillin; Z77.120 Contact with and (suspected) exposure to mold (toxic); Z88.8 Allergy status to other drugs, medicaments and biological substances
CPT/HCPCS: 36415; 80053; 83690; 85025; 85610; 85730; 81001; 74177; 99284; 96374; 96375 ×2; 96361; J1100; J2765; J1885; Q9967

== ENCOUNTER 2024-11-21 06:37 | Emergency (ER) | payer OTHER ==
--- NOTE | 2024-11-21 06:58 | ED ---
Abdominal Pain HPI - General Chief Complaint: Nausea/Vomiting/Diarrhea Stated Complaint: Crohn's Flare-up Time Seen by Provider: 11/21/24 06:45 Source: patient, RN notes reviewed Mode of arrival: ambulatory Limitations: no limitations - History of Present Illness Initial Comments: This is a 39-year-old female who presents to the emergency department for abdominal pain. Patient has a history of Crohn's disease and states that for the last week she has been having diffuse abdominal pain, nausea/vomiting, and diarrhea. States she has already had 10 bowel movements in the last 4 hours. Also states that she has bright red blood mixed in with it. States that when she gets Crohn's flareups, her internal hemorrhoids also act up on her, which she believes is contributing to the bleeding. She does not take any maintenance medication for the Crohn's disease, states that she is trying to control it with diet. She does follow with Dr. Briseno GI, as well. MD Complaint: abdominal pain - Related Data Home Medications Medication Instructions Recorded Confirmed Acetaminophen Tab [Tylenol Tab] 500 mg PO Q8HR PRN 05/18/24 05/20/24 Acetaminophen-Codeine 300-30mg 1 tab PO Q6H PRN 05/18/24 05/20/24 [Tylenol w/codeine #3] Albuterol Inhaler [Ventolin Hfa 1 - 2 puff INHALATION Q6H PRN 05/18/24 05/20/24 Inhaler] Cyanocobalamin (Vitamin B-12) 1,000 mcg PO DAILY 05/18/24 05/18/24 [B-12 Oral Soln] Fluticasone/Umeclidin/Vilanter 2 dose INHALATION BID 05/18/24 05/20/24 [Trelegy Ellipta 100-62.5-25] Ibuprofen 800 mg PO Q8H PRN 05/18/24 05/18/24 Ondansetron [Zofran] 4 mg PO Q8HR PRN 05/18/24 05/20/24 Pantoprazole [Protonix] 40 mg PO DAILY 05/18/24 05/20/24 Semaglutide [Wegovy] 1 mg SQ WEEKLY 05/18/24 05/18/24 Previous Rx's Medication Instructions Recorded Cyclobenzaprine [Flexeril] 10 mg PO TID PRN #15 tab 05/04/24 LORazepam [Ativan] 1 mg PO TID PRN 3 Days #9 tab 05/04/24 Metoclopramide [Reglan] 10 mg PO Q6H PRN #30 tab 11/21/24 predniSONE [Deltasone] 40 mg PO DIRECTED 5 Days #11 tab 11/21/24 Allergies Allergy/AdvReac Type Severity Reaction Status Date / Time latex Allergy Rash/Hives Verified 11/21/24 06:39 Penicillins Allergy Anaphylaxis Verified 11/21/24 06:39 bupropion [From Wellbutrin] AdvReac Unknown Verified 11/21/24 06:39 mold AdvReac Unknown Verified 11/21/24 06:39 Review of Systems ROS Statement: Those systems with pertinent positive or pertinent negative responses have been documented in the HPI. ROS Other: All systems not noted in ROS Statement are negative. Past Medical History Past Medical History: Asthma, Hyperlipidemia, Liver Disease, Skin Disorder Additional Past Medical History / Comment(s): Chrons History of Any Multi-Drug Resistant Organisms: None Reported Past Surgical History: Adenoidectomy, Hysterectomy, Tonsillectomy Past Psychological History: ADD/ADHD, Anxiety, Depression, PTSD Smoking Status: Former smoker Past Alcohol Use History: None Reported Past Drug Use History: Marijuana General Exam Limitations: no limitations General appearance: alert, in no apparent distress Head exam: Present: atraumatic, normocephalic, normal inspection Respiratory exam: Present: normal lung sounds bilaterally. Absent: respiratory distress, wheezes, rales, rhonchi, stridor Cardiovascular Exam: Present: regular rate, normal rhythm GI/Abdominal exam: Present: soft, tenderness (diffuse). Absent: distended Neurological exam: Present: alert, oriented X3, CN II-XII intact Psychiatric exam: Present: normal affect, normal mood Skin exam: Present: warm, dry, intact, normal color. Absent: rash Course Vital Signs 11/21/24 11/21/24 06:39 07:19 Temperature 97.8 F 97.6 F Pulse Rate 77 55 L Respiratory 22 16 Rate Blood Pressure 109/75 94/65 O2 Sat by Pulse 99 100 Oximetry Medical Decision Making - Medical Decision Making This is a 39-year-old female who presents to the emergency department for abdominal pain. Was pt. sent in by a medical professional or institution? @ -No Did you speak to anyone other than the patient for history? @ -No Did you review nursing and triage notes? @ -Yes, and I agree, it is accurate with regards to the patient's symptoms. Were old charts reviewed? @ -No Differential Diagnosis? @ -Differential Abdominal Pain Women: Appendicitis, Cholecystitis, diverticulosis, ischemic bowel, pancreatitis, hepatitis, UTI, gastroenteritis, AAA, incarcerated hernia, bowel obstruction, constipation, inflammatory bowel, hepatitis, peptic ulcer disease, splenic infarction, perforated viscus, vulvitis, ovarian torsion, PID, kidney stone, placenta abruption, this is not meant to be an all-inclusive list EKG interpreted by me (3pts min.)? @ -Not obtained X-rays interpreted by me (1pt min.)? @ -Not obtained CT interpreted by me (1pt min.)? @ -CT scan of the abdomen and pelvis obtained. My interpretation identifies thickening of the terminal ileum. U/S interpreted by me (1pt. min.)? @ -Not obtained What testing was considered but not performed? (CT, X-rays, U/S, labs)? Why? @ -None What meds were considered but not given? Why? @ -None Did you discuss the management of the patient with other professionals? @ -No Did you reconcile home meds? @ -No Was smoking cessation discussed for >3mins.? @ -No Was critical care preformed (if so, how long)? @ -No Were there social determinants of health that impacted care today? How? (Homelessness, low income, unemployed, alcoholism, drug addiction, transportation, low edu. Level, literacy, decrease access to med. care, [facility], rehab)? @ -No Was there de-escalation of care discussed even if they declined? (Discuss DNR or withdrawal of care, Hospice)? @ -No What co-morbidities impacted this encounter? (DM, HTN, Smoking, COPD, CAD, Cancer, CVA, Hep., AIDS, mental health diagnosis, sleep apnea, morbid obesity)? @ -Crohn's disease Was patient admitted / discharged? @ -Discharged. Lab work entirely unremarkable. She has no leukocytosis, elevated lactic acid, or elevation in inflammatory markers. CT scan of the abdomen and pelvis demonstrates an 8 cm segment of terminal ileitis with mild inflammation. There is no abscess or free air. No signs of a bowel obstruction. Findings reviewed with the patient. Symptoms well-controlled in the emergency department and she was tolerating oral intake. Prescription for a 5-day course of prednisone provided with dosing instructions reviewed to help with the Crohn's colitis/terminal ileitis flareup. Reglan prescribed for any additional nausea. Patient discharged home in stable condition and advised to follow-up with GI and her PCP. Case discussed with ED attending Dr. Mehta. Return precautions reviewed in depth, the patient is instructed to return to the emergency department with any new, worsening, or concerning symptoms. Patient verbalized understanding. Undiagnosed new problem with uncertain prognosis? @ -None Drug Therapy requiring intensive monitoring for toxicity (Heparin, Nitro, Insulin, Cardizem)? @ -None Were any procedures done? @ -None Diagnosis/symptom? @ -Terminal ileitis Acute, or Chronic, or Acute on Chronic? @ -Acute Uncomplicated (without systemic symptoms) or Complicated (systemic symptoms)? @ -Complicated Side effects of treatment? @ -None Exacerbation, Progression, or Severe Exacerbation] @ -Not applicable Poses a threat to life or bodily function? @ -No - Lab Data Result diagrams: 11/21/24 06:57 11/21/24 06:57 Lab Results 11/21/24 11/21/24 11/21/24 Range/Units 06:57 06:57 06:57 WBC 6.79 (4.50-10.00) 10*3/uL RBC 4.20 (4.10-5.20) 10*6/uL Hgb 13.8 (12.0-15.0) g/dL Hct 37.9 (37.2-46.3) % MCV 90.2 (80.0-97.0) fL MCH 32.9 H (27.0-32.0) pg MCHC 36.4 (32.0-37.0) g/dL Plt Count 293 (140-440) 10*3/uL MPV 9.0 L (9.5-12.2) fL Immature Gran % (Auto) 0.3 % Neutrophils % 61.2 % Lymphocytes % 30.9 % Monocytes % 5.7 % Eosinophils % 1.5 % Basophils % 0.4 % Immature Gran # 0.02 (0.00-0.04) 10*3/uL Neutrophils # 4.15 (1.80-7.70) 10*3/uL Lymphocytes # 2.10 (0.90-5.00) 10*3/uL Monocytes # 0.39 (0.20-1.00) 10*3/uL Eosinophils # 0.10 (0.04-0.35) 10*3/uL Basophils # 0.03 (0.00-0.10) 10*3/uL PT 11.4 (10.0-12.5) sec INR 1.0 (<1.2) APTT 26.7 (22.0-30.0) sec Sodium 139 (137-145) mmol/L Potassium 4.1 (3.5-5.1) mmol/L Chloride 108 H (98-107) mmol/L Carbon Dioxide 17 L (22-30) mmol/L Anion Gap 14 mmol/L BUN 15 (7-17) mg/dL Creatinine 0.84 (0.52-1.04) mg/dL Est GFR (CKD-EPI)AfAm >90 (>60 ml/min/1.73 sqM) Est GFR (CKD-EPI)NonAf 88 (>60 ml/min/1.73 sqM) Glucose 90 (74-99) mg/dL Plasma Lactic Acid Camron (0.7-2.0) mmol/L Calcium 9.8 (8.4-10.2) mg/dL Magnesium 1.6 (1.6-2.3) mg/dL Total Bilirubin 0.9 (0.2-1.3) mg/dL AST 15 (14-36) U/L ALT 10 (4-34) U/L Alkaline Phosphatase 77 (38-126) U/L C-Reactive Protein <0.5 (<1.0) mg/dL Total Protein 7.4 (6.3-8.2) g/dL Albumin 4.4 (3.5-5.0) g/dL Lipase 103 (23-300) U/L // Range/Units 06:57 WBC (4.50-10.00) 10*3/uL RBC (4.10-5.20) 10*6/uL Hgb (12.0-15.0) g/dL Hct (37.2-46.3) % MCV (80.0-97.0) fL MCH (27.0-32.0) pg MCHC (32.0-37.0) g/dL Plt Count (140-440) 10*3/uL MPV (9.5-12.2) fL Immature Gran % (Auto) % Neutrophils % % Lymphocytes % % Monocytes % % Eosinophils % % Basophils % % Immature Gran # (0.00-0.04) 10*3/uL Neutrophils # (1.80-7.70) 10*3/uL Lymphocytes # (0.90-5.00) 10*3/uL Monocytes # (0.20-1.00) 10*3/uL Eosinophils # (0.04-0.35) 10*3/uL Basophils # (0.00-0.10) 10*3/uL PT (10.0-12.5) sec INR (<1.2) APTT (22.0-30.0) sec Sodium (137-145) mmol/L Potassium (3.5-5.1) mmol/L Chloride (98-107) mmol/L Carbon Dioxide (22-30) mmol/L Anion Gap mmol/L BUN (7-17) mg/dL Creatinine (0.52-1.04) mg/dL Est GFR (CKD-EPI)AfAm (>60 ml/min/1.73 sqM) Est GFR (CKD-EPI)NonAf (>60 ml/min/1.73 sqM) Glucose (74-99) mg/dL Plasma Lactic Acid Camron 1.0 (0.7-2.0) mmol/L Calcium (8.4-10.2) mg/dL Magnesium (1.6-2.3) mg/dL Total Bilirubin (0.2-1.3) mg/dL AST (14-36) U/L ALT (4-34) U/L Alkaline Phosphatase (38-126) U/L C-Reactive Protein (<1.0) mg/dL Total Protein (6.3-8.2) g/dL Albumin (3.5-5.0) g/dL Lipase (23-300) U/L - Radiology Data Radiology results: report reviewed, image reviewed Disposition Clinical Impression: Crohn's colitis, Terminal ileitis Disposition: HOME SELF-CARE Instructions (If sedation given, give patient instructions): Crohn Disease (ED) Additional Instructions: Return to the emergency department with any new, worsening, or concerning symptoms. Take the prednisone as prescribed for an additional 5 days. You can take the Reglan up to every 6 hours as needed for nausea and vomiting. You can also alternate taking this with the Zofran. 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 Prescriptions: predniSONE [Deltasone] 40 mg PO DIRECTED 5 Days #11 tab Metoclopramide [Reglan] 10 mg PO Q6H PRN #30 tab PRN Reason: Nausea And Vomiting Is patient prescribed a controlled substance at d/c from ED?: No Referrals: Perlita Farmer MD [Primary Care Provider] - 1-2 days Time of Disposition: 08:42
[2024-11-21 07:10] LABS: Basophils # (A) 0.03 10*3/uL (0.00-0.10); Basophils % (A) 0.4 %; Eosinophils # (A) 0.10 10*3/uL (0.04-0.35); Eosinophils % (A) 1.5 %; HCT 37.9 % (37.2-46.3); HGB 13.8 g/dL (12.0-15.0); Lymphocytes # (A) 2.10 10*3/uL (0.90-5.00); Lymphocytes % (A) 30.9 %; MCH 32.9 pg (27.0-32.0); MCHC 36.4 g/dL (32.0-37.0); MCV 90.2 fL (80.0-97.0); Monocytes # (A) 0.39 10*3/uL (0.20-1.00); Monocytes % (A) 5.7 %; Neutrophils # (A) 4.15 10*3/uL (1.80-7.70); Neutrophils % (A) 61.2 %; Platelet Count 293 10*3/uL (140-440); RBC 4.20 10*6/uL (4.10-5.20); RDW 12.0 % (11.5-14.5); WBC 6.79 10*3/uL (4.50-10.00)
[2024-11-21 07:22] VITALS: RESP 16
[2024-11-21] MEDS: SODIUM CHLORIDE 0.9% 1,000 ML IV STA (07:22)
[2024-11-21] MEDS: METOCLOPRAMIDE 5 MG/ML 2 ML VIAL IVP STA (07:23)
[2024-11-21 07:30] LABS: INR 1.0 (<1.2); Partial Thromboplastin Time 26.7 sec (22.0-30.0); Prothrombin Time 11.4 sec (10.0-12.5)
[2024-11-21] MEDS: methylPREDNISolone SOD SUCCI 125 MG/2 ML VIAL IV STA (07:31)
[2024-11-21 07:57] LABS: ALT 10 U/L (4-34); AST 15 U/L (14-36); African American GFR (CKD) >90 (>60 ml/min/1.73 sqM); Albumin 4.4 g/dL (3.5-5.0); Alkaline Phosphatase 77 U/L (38-126); Anion Gap 14 mmol/L; Blood Urea Nitrogen 15 mg/dL (7-17); Calcium 9.8 mg/dL (8.4-10.2); Carbon Dioxide 17 mmol/L (22-30); Chloride 108 mmol/L (98-107); Glucose 90 mg/dL (74-99); Lipase 103 U/L (23-300); Magnesium 1.6 mg/dL (1.6-2.3); Non-African American GFR(CKD) 88 (>60 ml/min/1.73 sqM); Potassium 4.1 mmol/L (3.5-5.1); Sodium 139 mmol/L (137-145); Total Protein 7.4 g/dL (6.3-8.2)
[2024-11-21] MEDS: KETOROLAC 15 MG/ML 1 ML VIAL IVP STA (08:18)
--- NOTE | 2024-11-21 08:21 | CT ---
EXAMINATION TYPE: CT abdomen pelvis w con DATE OF EXAM: 11/21/2024 7:48 AM COMPARISON: 08/24/2024 CLINICAL INDICATION: Female, 39 years old with history of Abdominal pain, acute, nonlocalized, hx of Crohn's; Abdominal pain, acute, nonlocalized, hx of Crohn's TECHNIQUE: CT of the abdomen and pelvis after IV contrast. Delayed images through the kidneys and cor onal/sagittal reconstructions performed. Contrast used:100 ml mL of Isovue 300 with IV Contrast, (none if empty) Oral contrast used: without Oral Contrast (none if empty) CT DLP: 1161.2 mGycm, Automated exposure control for dose reduction was used. FINDINGS: LOWER CHEST: Unremarkable ABDOMEN LIVER: Some focal fat along the anterior falciform ligament. Mild hepatomegaly at 18.8 cm. GALLBLADDER AND BILE DUCTS: Unremarkable. PANCREAS: Unremarkable. SPLEEN: Unremarkable. ADRENAL GLANDS: Unremarkable. KIDNEYS AND URETERS: No evidence of hydronephrosis or renal calculus. The ureters are unremarkable. PELVIS BLADDER: Collapsed and not well assessed. REPRODUCTIVE: Uterus surgically absent. Both ovaries are visualized. Left-sided pelvic phlebolith. No abnormal fluid collection in the pelvis. ABDOMEN & PELVIS STOMACH AND BOWEL: Tiny hiatal hernia. No evidence of bowel obstruction. Prominent fluid within small bowel loops lower abdomen and pelvis. Liquid stool in the right side of the colon. There is an 8 cm long segment of circumferentially thickened terminal ileum showing mucosal hyperemia, coronal image 4 0. There is mild circumferential thickening also involving the left side of the colon and transverse colon probably due to nondistention and collapse. PERITONEUM/RETROPERITONEUM: No evidence of pneumoperitoneum or free fluid. VASCULATURE: No evidence of aortic aneurysm. MUSCULOSKELETAL: Mild degenerative change at both hips. LYMPH NODES: Clustered prominent lymph nodes in mesentery and right lower quadrant measuring up to 8 mm likely reactive/post inflammatory. SOFT TISSUE/ABDOMINAL WALL: Unremarkable IMPRESSION: 1. An 8 cm segment of terminal ileitis with mild inflammation. No abscess or free air. No bowel obst ruction. 2. Mild circumferential wall thickening along the left side of the colon and transverse colon could r eflect additional mild colitis versus nondistention. The latter is somewhat favored. 3. Some reactive, prominent right lower quadrant and mid mesenteric lymph nodes. [facility], , 11/21/2024 8:19 AM
[2024-11-21] MEDS: SODIUM CHLORIDE 0.9% 1,000 ML IV ONE (08:23)
[2024-11-21] MEDS: MORPHINE SULFATE 4 MG/ML SYRINGE IVP STA (08:40)
[2024-11-21] MEDS: ACET/COD 300 MG/30 MG STARTER PACK TAB BTL PO STA (08:48)
[2024-11-21 09:00] VITALS: BP 106/69; PULSE 60; TEMP 97.8
== END 2024-11-21 09:00 | disposition home or self-care (01) ==
LOC: EC 06:37
DX: K50.80 Crohn's disease of both small and large intestine without complications (principal); K64.8 Other hemorrhoids; Z87.891 Personal history of nicotine dependence; Z88.0 Allergy status to penicillin; Z91.040 Latex allergy status; Z88.8 Allergy status to other drugs, medicaments and biological substances
CPT/HCPCS: 36415; 80053; 83605; 83690; 83735; 85025; 85610; 85730; 86140; 74177; 99284; 96374; 96375; 96361; J2765; J1885; Q9967; J2919